=== PATIENT | female | born 1990 | race Caucasian/White ===

== ENCOUNTER 2017-09-03 07:45 | Emergency (ER) | payer BC ==
[2017-09-03 08:01] VITALS: BP 104/63
--- NOTE | 2017-09-03 08:08 | UC ---
Eye Complaint HPI - HPI Summary HPI Summary: pt c/o sudden onset of right eye redness, purulent discharge X 1 day, productive cough, sinus pressure generalized malaise X one week. Son was diagnosed with pink eye on 09/02/17 - History of Current Complaint Chief Complaint: UCRespiratory Stated Complaint: RIGHT EYE/SINUS COMPLAINT Time Seen by Provider: 09/03/17 08:02 Hx Obtained From: Patient Hx Last Menstrual Period: unknown ?: No Onset/Duration: Sudden Onset - right eye, Gradual Onset - nasal congestion and sinus pressure Timing: Constant Severity Initially: Mild Severity Currently: Mild Aggravating Factor(s): Light Associated Signs And Symptoms: Positive: Drainage (Purulent) - right - Allergies/Home Medications Allergies/Adverse Reactions: Allergies Allergy/AdvReac Type Severity Reaction Status Date / Time No Known Allergies Allergy Verified 09/03/17 07:54 Home Medications: Home Medications Acetaminophen [Acetaminophen Extra Stren] 1,000 mg PO ONCE PRN 09/03/17 [ History Confirmed 09/03/17] Levonorgestrel (Iud) [Mirena IUD] 20 mcg IU ONCE 09/03/17 [History Confirmed ] PMH/Surg Hx/FS Hx/Imm Hx Previously Healthy: Yes - Surgical History Surgical History: Yes Surgery Procedure, Year, and Place: APPENDECTOMY, T&A, b/l KNEE SURGERIES - Family History Known Family History: Positive: Cardiac Disease - Social History Occupation: Employed Full-time Lives: With Family Alcohol Use: Occasionally Substance Use Type: None Smoking Status (MU): Never Smoked Tobacco Have You Smoked in the Last Year: No - Immunization History Most Recent Influenza Vaccination: 06/01/14 Review of Systems Constitutional: Chills, Fatigue Skin: Negative Eyes: Drainage - right eye, Eye Redness - right eye ENT: Sore Throat, Sinus Congestion, Sinus Pain/Tenderness Respiratory: Cough Cardiovascular: Negative Gastrointestinal: Negative Genitourinary: Negative Motor: Negative Neurovascular: Negative Musculoskeletal: Negative Neurological: Headache Psychological: Negative Is Patient Immunocompromised?: No All Other Systems Reviewed And Are Negative: Yes Physical Exam Triage Information Reviewed: Yes Appearance: Ill-Appearing Vital Signs: Initial Vital Signs Temp 98 F 09/03/17 07:56 Pulse 74 09/03/17 07:56 Resp 18 09/03/17 07:56 BP 104/63 09/03/17 07:56 Pulse Ox 99 09/03/17 07:56 Vital Signs Reviewed: Yes Eye Exam: Other Eyes: Positive: Conjunctiva Inflamed, Discharge - right eye yellow ENT: Positive: Nasal congestion, Sinus tenderness Dental Exam: Normal Neck exam: Normal Respiratory Exam: Normal Cardiovascular Exam: Normal Musculoskeletal Exam: Normal Neurological Exam: Normal Psychological Exam: Normal Skin Exam: Normal Eye Complaint Course/Dx - Differential Dx/Diagnosis Differential Diagnosis/HQI/PQRI: Conjunctivitis Provider Diagnoses: conjunctivitis right eye. sinusitis Discharge - Discharge Plan Condition: Stable Disposition: HOME Prescriptions: Amoxicillin PO (*) [Amoxicillin 875 MG (*)] 875 mg PO BID #20 tab Fluconazole [Diflucan 150 MG (NF)] 150 mg PO ONCE #2 tab Polymyx/Trimethoprim OPTH* [Polytrim OPHTH*] 2 drop BOTH EYES Q8H #1 btl Patient Education Materials: Sinusitis (ED), Conjunctivitis (ED) Forms: *Work Release Referrals: Luca Garcia DO [Primary Care Provider] - If Needed
== END 2017-09-03 08:18 | disposition home or self-care (01) ==
LOC: UCCORT 07:45
DX: H10.9 Unspecified conjunctivitis (principal); J32.9 Chronic sinusitis, unspecified; Z72.89 Other problems related to lifestyle
CPT/HCPCS: 99212; G0463